=== PATIENT | female | born 1965 | race Caucasian/White ===

== ENCOUNTER → 2020-10-07 | Outpatient (CLI) | payer OTHER ==
--- NOTE | 2020-10-07 16:36 | BD ---
EXAMINATION TYPE: Axial Bone Density DATE OF EXAM: 10/07/2020 COMPARISON: NONE CLINICAL HISTORY: Height: 64.7 IN Weight: 237 LBS RISK FACTORS HISTORY OF: Active: YES Postmenopausal woman: AGE 50 Take estrogen and/or progesterone medications: NOT NOW How long: TOOK CONTROL FOR 3 YEARS MEDICATIONS: Additional Medications: FLAX SEED OIL, VIT D, MULTI VIT, BABY ASPIRIN,ASHWANGER( MOOD STABILIZER) EXAM MEASUREMENTS: Bone mineral densitometry was performed using the [employer] System. Bone mineral density as measured about the Lumbar spine is: ----- L1-L4(G/cm2): 1.291 T Score Values are as follows: ----- L2: 1.2 ----- L3: 1.4 ----- L4: 0.5 ----- L1-L4: 0.9 Bone mineral density BASELINE Bone mineral density about the R hip (g/cm2): 1.103 Bone mineral density about the L hip (g/cm2): 1.087 T Score values are as follows: -----R Neck: 0.5 -----L Neck: 0.4 -----R Total: 0.7 -----L Total: 1.0 Bone mineral density BASELINE IMPRESSION: Normal bone mineral density. NOTE: T-SCORE=SD OF THE YOUNG ADULT MEAN.
--- NOTE | 2020-10-11 11:24 | MM ---
Reason for exam: screening (asymptomatic). History: Patient is postmenopausal. Family history of breast cancer in mother at age 57. Took hormonal contraceptives for 3 years. Physical Findings: A clinical breast exam by your physician is recommended on an annual basis and results should be correlated with mammographic findings. MG Screening Mammo w CAD Bilateral CC and MLO view(s) were taken. No prior studies available for comparison. There are scattered fibroglandular densities. ASSESSMENT: Negative, BI-RAD 1 RECOMMENDATION: Routine screening mammogram of both breasts in 1 year.
== END | disposition home or self-care (01) ==
LOC: RADMAMWWP 12:23
PROVIDERS: ATTEND Internal Medicine
DX: Z12.31 Encounter for screening mammogram for malignant neoplasm of breast (principal); Z78.0 Asymptomatic menopausal state; Z80.3 Family history of malignant neoplasm of breast
CPT/HCPCS: 77067; 77080

== ENCOUNTER → 2021-12-08 | Outpatient (CLI) | payer OTHER ==
--- NOTE | 2021-12-09 10:47 | MM ---
Reason for Exam: Screening (asymptomatic). Last mammogram was performed 1 year(s) and 2 month(s) ago. Patient History: Menarche at age 11. First Full-Term at age 15. Postmenopausal. Patient used Hormonal Contraceptives for 3 years. Mother had breast cancer, age 57. Risk Values: Anna 5 year model risk: 2.5%. NCI Lifetime model risk: 15.7%. Prior Study Comparison: 10/07/2020 Bilateral Screening Mammogram, [facility]. Tissue Density: There are scattered fibroglandular densities. Findings: Analyzed By CAD. There is no suspicious group of microcalcifications or new suspicious mass in either breast. Overall Assessment: Negative, BI-RAD 1 Management: Screening Mammogram of both breasts in 1 year. A clinical breast exam by your physician is recommended on an annual basis and results should be correlated with mammographic findings. Electronically signed and approved by: Jose Bryan DO
== END | disposition home or self-care (01) ==
LOC: RADMAMWWP 13:14
PROVIDERS: ATTEND Internal Medicine
DX: Z12.31 Encounter for screening mammogram for malignant neoplasm of breast (principal); Z78.0 Asymptomatic menopausal state; Z80.3 Family history of malignant neoplasm of breast
CPT/HCPCS: 77067

== ENCOUNTER → 2022-12-15 | Outpatient (CLI) | payer OTHER ==
[2022-12-15 13:23] VITALS: BP 107/74; PULSE 80; RESP 17; TEMP 97.9
--- NOTE | 2022-12-15 14:17 | P.HPOB ---
History of Present Illness H&P Date: 12/15/22 Chief Complaint: The patient is here for her routine gynecologic exam and ma mmogram. This is a 57-year-old 012 with an LMP of 2011. The patient is here to establish with this office. It has been about 7 years since her last pelvic exam. She is without gynecologic complaints and denies any postmenopausal bleeding. Review of Systems She states her weight can fluctuate by about 10-15 pounds. She denies respiratory, cardiac, or GI problems. 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 History of Any Multi-Drug Resistant Organisms: None Reported Past Surgical History: No Surgical Hx Reported, Tonsillectomy Additional Past Surgical History / Comment(s): VTP. Lipoma removed. Past Anesthesia/Blood Transfusion Reactions: No Reported Reaction Past Psychological History: No Psychological Hx Reported (She denies current depression.) Smoking Status: Never smoker Past Alcohol Use History: Rare (1 per year.) Past Drug Use History: None Reported Additional History: She has been since 2005. 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 - Past Family History Mother Family Medical History: Cancer, Hypertension Additional Family Medical History / Comment(s): Breast cancer. Father Family Medical History: Diabetes Mellitus, Hypertension Additional Family Medical History / Comment(s): from alcohol abuse related problems. Medications and Allergies Home Medications Medication Instructions Recorded Confirmed Type Ashwagandha Root Extract 300 mg PO DAILY 12/15/22 12/15/22 History [Ashwagandha] Aspirin [Children's Aspirin] 81 mg PO DAILY 12/15/22 12/15/22 History Astaxanthin 12 mg PO DAILY 12/15/22 12/15/22 History B Complex W-C No.20/Folic Acid 1 cap PO DAILY 12/15/22 12/15/22 History [Renal Caps Softgel] Biotin [Biotin Disolve] 5,000 mcg PO DAILY 12/15/22 12/15/22 History Fexofenadine HCl [Alia Allergy] 180 mg PO DAILY 12/15/22 12/15/22 History Garlic Extract [Garlic] 400 mg PO DAILY 12/15/22 12/15/22 History L.acidoph,Paracasei, B.lactis 1 cap PO DAILY 12/15/22 12/15/22 History [Probiotic] Lecithin, Soy [Lecithin] 1,200 mg PO DAILY 12/15/22 12/15/22 History Lutein 20 mg PO DAILY 12/15/22 12/15/22 History Multivitamin [Multivitamins Adult 1 tablet PO DAILY 12/15/22 12/15/22 History Gummies] Allergies Allergy/AdvReac Type Severity Reaction Status Date / Time No Known Allergies Allergy Unverified 12/15/22 13:18 Exam Vital Signs Temp Pulse Resp BP Pulse Ox 12/15/22 13:19 97.9 F 80 17 107/74 98 Intake and Output 12/14/22 12/15/22 12/15/22 22:59 06:59 14:59 Other: Weight 101.605 kg Height 5 feet 5 inches, weight 224 pounds, BMI 37.3. This is a well-developed well-nourished white female who is alert and oriented times 3 in no acute distress. HEENT: Within normal limits. NECK: Supple without mass or thyromegaly. CHEST AND LUNGS: Clear to auscultation. HEART: Regular rate and rhythm. BREASTS: Are without mass or discharge. AXILLARY EXAM: Negative for adenopathy. BACK: Negative for CVA tenderness. ABDOMEN: Soft, nontender, without palpable masses. PELVIC EXAM: Normal external genitalia with mild atrophy. Cervix and vagina appear normal with mild atrophy. There is no unusual discharge. There is a grade 2 rectocele. There is no other significant prolapse noted. The uterus is midposition, nongravid size and nontender. There are no palpable adnexal masses or tenderness. RECTAL EXAM: Rectovaginal exam is negative for mass or tenderness and is negative for occult blood. Rectal exam also confirms the small rectocele. EXTREMITIES: Nontender. IMPRESSION: 1. 57-year-old menopausal female with an asymptomatic grade 2 rectocele. PLAN: 1. Pap smear cotest was performed. 2. Self breast awareness was discussed with the patient. We have also discussed symptoms associated with inflammatory breast cancer. 3. Screening mammogram will be done today. 4. Osteoporosis prevention was discussed. I have stressed the importance of adequate calcium, vitamin D and regular exercise. Recommended amounts of calcium and vitamin D were also discussed. She had a normal bone density test on 10/07/2020. We will plan on repeating this in approximately 2025. 5. We have had a long discussion regarding the rectocele. I do not feel that any intervention is necessary at this time. I have recommended that she avoid holding stool longer than necessary. Information on pelvic support problems in the form of the ACOG FAQ handout will be mailed to the patient. She was instructed to call if she has any questions or if the rectocele is causing her problems. 6. She was advised to return in one year for her annual well woman exam and as needed.
--- NOTE | 2022-12-16 13:40 | MM ---
Reason for Exam: Screening (asymptomatic). Last screening mammogram was performed 12 month(s) ago. Patient History: Menarche at age 11. First Full-Term at age 15. Postmenopausal. Patient used Hormonal Contraceptives for 3 years. Mother had breast cancer, age 57. Risk Values: Anna 5 year model risk: 2.6%. NCI Lifetime model risk: 15.4%. Prior Study Comparison: 10/07/2020 Bilateral Screening Mammogram, [facility]. 12/08/2021 Bilateral MG screening mammo w CAD, [facility]. Tissue Density: The breast tissue is heterogeneously dense. This may lower the sensitivity of mammography. Findings: Analyzed By CAD. There is no suspicious group of microcalcifications or new suspicious mass in either breast. Overall Assessment: Benign, BI-RAD 2 Management: Screening Mammogram of both breasts in 1 year. . Patient should continue monthly self-breast exams. A clinical breast exam by your physician is recommended on an annual basis. This exam should not preclude additional follow-up of suspicious palpable abnormalities. Note on Anna scores and lifetime risk: 1. A Anna score greater than 3% is considered moderate risk. If this is the case, consider specialist referral to assess eligibility for a risk reducing agent. 2. If overall lifetime risk for the development of breast cancer is 20% or higher, the patient may qualify for future screening with alternating mammogram and breast MRI. Electronically signed and approved by: Dylan Saldana M.D. Radiologis
== END ==
LOC: WWCWWP 13:04
PROVIDERS: ATTEND Obstetrics & Gynecology
DX: Z12.31 Encounter for screening mammogram for malignant neoplasm of breast (principal); N81.6 Rectocele; Z80.3 Family history of malignant neoplasm of breast; Z79.82 Long term (current) use of aspirin
CPT/HCPCS: 77067